=== PATIENT | male | born 1955 | race Caucasian/White ===

== ENCOUNTER 2025-05-02 12:45 | Emergency (ER) | payer MEDICARE, SELFPAY ==
[2025-05-02 12:51] VITALS: BP 163/72
--- NOTE | 2025-05-02 15:27 | ED.SKININJ ---
HPI-Injury
General
Chief Complaint: Skin Surface Trauma
Source: patient
Exam Limitations: none
Time Seen by Provider: 05/02/25 15:28
Nursing documentation reviewed up to this point in time: agreed with
History of Present Illness-Injury
Initial Injury comments:
70-year-old male with history of CVA, Crohn's disease, colon resection x 2 presents after he tripped and fell in his yard and hit his right orbital area on the stones on the ground. He is not anticoagulated. There was no loss of consciousness. He
denies headache or neck pain. He states he also hurt his right shoulder as he fell on that also. He was able to get up independently. He is unsure of his last tetanus immunization. He denies change in vision or pain in the eyeball. Other than
right shoulder, he denies injury to his extremities.
Past History
Past History
ED Past Medical History: CVA and Other (Crohn's disease currently being weaned off prednisone and is down to 1 mg daily.)
ED Past Surgical History: Bowel resection
Social History
Tobacco: Non-smoker
Personal:
Living: with family
Review of Systems
Review of Systems
Allergies reviewed?: Yes
All Other Systems: ROS reviewed and negative except as documented in HPI and ROS
Skin Exam
Laceration
Right eyelid:
Length in cm: 1
Orientation: horizontal
Type of Laceration: simple
Any active bleeding?: low grade venous oozing
Right infraorbital area:
Length in cm: 1
Orientation: horizontal
Type of Laceration: simple
Any active bleeding?: low grade venous oozing
Phy Exam
Physical Exam
Physical Exam:
GENERAL: No acute distress. A&Ox3.
CONSTITUTIONAL: Afebrile.
EYES: clear, conjunctivae normal, EOMs intact. He is able to raise his eyebrows symmetrically. Moderate swelling and ecchymosis of the right upper eyelid and periorbital area. Visual acuity normal, reads fingers correctly at 10 feet.
ENMT: moist mucus membranes, Pharynx nl
RESPIRATORY: Regular respirations, nonlabored, lungs clear.
CARDIOVASCULAR: Regular rate and rhythm, no murmurs, no rubs.
GI: Soft, nontender, normal BS
MUSCULOSKELETAL: No spinal bony tenderness., With range of motion, distal neurovascular intact. Minimal tenderness to palpation about the right shoulder, clavicle. ROM abduction chronically limited due to previous rotator cuff injury, nothing new.
Moves with ease. Well perfused.
SKIN: Warm, dry, pink
PSYCH: Normal mood and affect. Well kept, interactive and appropriate
NEUROLOGIC: Awake, alert and oriented. Speech clear. Strength equal throughout. Cranial nerves II through XII intact. No focal neurological deficits
Course
Orders/Labs/Results
Orders:
Orders
05/02/25 12:53
CT Facial Bones W/o Iv Contras Urgent
Comment:
Reason For Exam: fall on eliquis
CT Head W/o Iv Contrast Urgent
Comment:
Reason For Exam: fall on eliquis
05/02/25 15:37
Lidocaine/Epinephrine/Tetracai [Let Topical Anesthetic Gel] 3 ml TOPICAL NOW STA
Tetanus/Diphth/Acelpertussis [Adacel] 0.5 ml IM .ONCE ONE
05/02/25 15:38
Lidocaine/Epinephrine/Tetracai [Let Topical Anesthetic Gel] 3 ml .ROUTE .STK-MED ONE
05/02/25 16:45
Acetaminophen [Tylenol] 1,000 mg PO NOW STA
Vital Signs
Initial and Last Documented VS:
Initial Vital Signs
Temp Pulse Resp BP Pulse Ox
98.2 F 55 17 163/72 99
05/02/25 12:51 05/02/25 12:51 05/02/25 12:51 05/02/25 12:51 05/02/25 12:51
Last Documented Vital Signs
Temp Pulse Resp BP Pulse Ox
98.2 F 55 17 163/72 99
05/02/25 12:51 05/02/25 12:51 05/02/25 12:51 05/02/25 12:51 05/02/25 15:28
Procedures
Laceration Closure
right infraorbital area:
Status of Wound: clean
Size of Wound in cm: 1
Description of Wound Edges: sharp
Preparation: cleaned with saline
Anesthesia: Topical-LET
Revision/Debridement: routine- no revision
Type of Closure: running stitch
Skin Closure Material: 6-0 vicryl
Number of sutures: 5
Right upper eyelid:
Status of Wound: clean
Size of Wound in cm: 1.5
Description of Wound Edges: sharp
Preparation: cleaned with saline
Anesthesia: Topical-LET
Revision/Debridement: routine- no revision
Wound exploration: explored to base- no FB
Type of Closure: running stitch
Skin Closure Material: 6-0 vicryl
Number of sutures: 8
Additional information:
antibiotic ointment, nonstick dressing applied.
MDM/Problems Addressed
Differential Diagnosis Includes:
Orbital fracture, contusion
MDM/Problems Addressed:
70-year-old male with history of CVA, Crohn's disease, colon resection x 2 presents after he tripped and fell in his yard and hit his right orbital area on the stones on the ground. He is not anticoagulated. There was no loss of consciousness. He
denies headache or neck pain. He states he also hurt his right shoulder as he fell on that also. He was able to get up independently. He is unsure of his last tetanus immunization. He denies change in vision or pain in the eyeball. Other than
right shoulder, he denies injury to his extremities.
Tdap updated
CT head radiology report read:
IMPRESSION:
Large area of encephalomalacia/old infarction in the right frontal lobe and small old infarcts in the left basal ganglia and internal capsule.
No acute intracranial abnormality.
Facial bones CT Radiology report read: No findings of recent facial bone fractures.
Patient out of bed and ambulating well prior to discharge denies dizziness, lightheadedness.
*Pulse Oximetry
SaO2: 99
Oxygen Mode of Delivery: Room air
Patient hypoxic: not evaluated
*Critical Care Note
Total Time (30-74mins, 75-104mins- exclusive of procedures): Not Applicable
ED Attending Note
-
Portions of this chart may have been created with voice recognition software.� Occasional wrong word or��sound alike� substitutions may have occurred due to the inherent limitations of voice recognition software.
Discharge Plan
Departure
Patient Disposition: Home (Routine Discharge)
Date of Disposition: 05/02/25
Time of Disposition: 16:39
Patient with high blood pressure during this ER visit?: No
Condition: Good
Discharge Problem:
Fall from slip, trip, or stumble, Contusion of right orbital tissues, Laceration of right upper eyelid, laceration right infraorbital area
Instructions: Head injury in adults, Eye Contusion (DC), Stitches - ED (DC)
Referrals:
Nearest medical facility [Other] - As needed
UNKNOWN - PT DOES,NOT KNOW [Family Provider]
Activity Restrictions/Additional Instructions:
As we discussed, nothing worrisome on the head and facial bones CT scans.
Cold compress to the eye 20 minutes off and on as much as you can in the next 2 days to minimize swelling and bruising.
Tylenol as needed for discomfort
Seek medical care immediately for vomiting more than once in one hour, confusion, headache that gets worse despite Tylenol and rest.
The sutures will dissolve/fall out on their own
See medical care immediately for signs of infection that may include increasing pain, swelling, pus drainage, fever, or any loss of vision.
Interventions
Interventions:
*Risk Screen - Suicide Last Done: 05/02/25 12:53
*General Assessment Last Done: 05/02/25 12:53
*Neglect/Abuse Screening Last Done: 05/02/25 12:53
*ED COVID-19 Vaccine History Last Done: 05/02/25 12:53
*ED Influenza Vaccine History Last Done: 05/02/25 12:53
*Nursing Disposition Last Done: 05/02/25 17:03
ED-Skin Assessment Last Done: 05/02/25 15:51
Discharge Date and Time
Discharge Date/Time: 05/02/25 17:04
Print Language: [place]
[2025-05-02] MEDS: ADACEL 0.5 ML IM (15:39)
[2025-05-02] MEDS: LET TOPICAL ANESTHETIC GEL 3 ML TOPICAL (15:39)
[2025-05-02] MEDS: TYLENOL 1000 MG PO (16:48)
== END 2025-05-02 17:04 | disposition home or self-care (01) ==
LOC: EMR 12:45
PROVIDERS: EMERGENCY PHYSICIAN Student in an Organized Health Care Education/Training Program
DX: S05.11XA Contusion of eyeball and orbital tissues, right eye, initial encounter (principal); S01.111A Laceration without foreign body of right eyelid and periocular area, initial encounter; W01.198A Fall on same level from slipping, tripping and stumbling with subsequent striking against other object, initial encounter; Y92.007 Garden or yard of unspecified non-institutional (private) residence as the place of occurrence of the external cause; K50.90 Crohn's disease, unspecified, without complications; Z23 Encounter for immunization; Z79.01 Long term (current) use of anticoagulants; Z86.73 Personal history of transient ischemic attack (TIA), and cerebral infarction without residual deficits
CPT/HCPCS: 99283; 12011; 90471; 70450; 70486; 90715